=== PATIENT | male | born 1960 | race Caucasian/White ===

== ENCOUNTER 2022-12-20 12:03 | Outpatient (CLI) | payer OTHER | END 2022-12-20 12:04 | disposition home or self-care (01) | LOC: SCSMRI 12:03 | PROVIDERS: ATTEND Orthopaedic Surgery | DX: M75.112 Incomplete rotator cuff tear or rupture of left shoulder, not specified as traumatic (principal); M19.012 Primary osteoarthritis, left shoulder; S46.212A Strain of muscle, fascia and tendon of other parts of biceps, left arm, initial encounter; M67.812 Other specified disorders of synovium, left shoulder; R60.0 Localized edema ==

== ENCOUNTER 2023-01-18 12:41 | Outpatient (CLI) | payer OTHER | END 2023-01-18 12:42 | disposition home or self-care (01) | LOC: BICMRI 12:41 | PROVIDERS: ATTEND Orthopaedic Surgery | DX: D17.22 Benign lipomatous neoplasm of skin and subcutaneous tissue of left arm (principal) | CPT/HCPCS: 82565 ==